=== PATIENT | female | born 1980 | race Caucasian/White ===

== ENCOUNTER 2018-07-20 14:37 | Inpatient (IN) | payer OTHER ==
[2018-07-20 15:54] LABS: ADD UMIC YES; UR ASCORBIC ACID NEGATIVE (NEGATIVE); UR BACTERIA FEW /HPF (NONE SEEN); UR BILIRUBIN (Dip) NEGATIVE (NEGATIVE); UR BLOOD (Dip) 2+ mg/dL (NEGATIVE); UR CLARITY CLOUDY (CLEAR); UR COLOR YELLOW (YELLOW); UR GLUCOSE (Dip) NEGATIVE (NEGATIVE); UR KETONES (Dip) NEGATIVE (NEGATIVE); UR LEUKOCYTE ESTERASE (Dip) 1+ Leu/ul (NEGATIVE); UR MUCUS FEW /HPF (NONE SEEN); UR NITRITE (Dip) NEGATIVE (NEGATIVE); UR RBC 2 /HPF (0-5); UR SPECIFIC GRAVITY (Dip) 1.012 (1.003-1.030); UR SQUAMOUS EPITHELIAL CELL MANY /HPF (FEW); UR TOTAL PROTEIN (Dip) NEGATIVE (NEGATIVE); UR UROBILINOGEN (Dip) NEGATIVE (NEGATIVE); UR WBC 2 /HPF (0-5)
[2018-07-20] MEDS: LIDOCAINE 1% (MPF) 5 ML VIAL SC (16:30)
[2018-07-20 16:35] LABS: ADD MAN DIFF? NO
[2018-07-20] MEDS: SOD CHLORIDE 0.9% 1,000 ML IV (16:39)
[2018-07-20] MEDS: ONDANSETRON 4 MG INJ IV (16:39)
[2018-07-20] MEDS: morphine 4 MG/ML VIAL IV (16:39)
[2018-07-20 16:42] LABS: HEMATOCRIT 38.3 % (37.0-47.0); HEMOGLOBIN 11.8 g/dl (12.0-16.0); LYMPHOCYTES % 24.6 % (15.0-51.0); MEAN CORPUSCULAR HEMOGLOBIN 26.4 pg (29.0-33.0); MEAN CORPUSCULAR HGB CONC 30.8 g/dl (32.0-37.0); MEAN CORPUSCULAR VOLUME 85.7 fl (82.0-101.0); MEAN PLATELET VOLUME 10.5 fl (7.4-10.4); NEUTROPHILS % 67.5 % (39.0-77.0); PLATELET COUNT 262 10^3/UL (140-415); RED BLOOD COUNT 4.47 10^6/ul (4.20-5.40); RED CELL DISTRIBUTION WIDTH 15.6 % (11.5-14.5)
[2018-07-20 16:42] LABS: WHITE BLOOD COUNT 7.2 10^3/ul (4.8-10.8)
[2018-07-20 16:43] LABS: BASOPHILS % 0.3 % (0.0-2.0); EOSINOPHILS # 0.1 10^3/ul (0.0-0.5); EOSINOPHILS % 1.4 % (0.0-7.0); LYMPHOCYTES # 1.8 10^3/ul (0.8-2.9); MONOCYTE # 0.4 10^3/ul (0.3-0.9); MONOCYTES % 5.6 % (0.0-11.0); NEUTROPHIL # 4.8 10^3/ul (1.6-7.5)
[2018-07-20 17:02] LABS: ALANINE AMINOTRANSFERASE 85 IU/L (13-69); ALBUMIN 4.2 g/dl (3.3-4.9); ALBUMIN/GLOBULIN RATIO 1.35; ALKALINE PHOSPHATASE 156 IU/L (42-121); ANION GAP 7 (5-13); ASPARTATE AMINO TRANSFERASE 42 IU/L (15-46); BILIRUBIN,INDIRECT 0.2 mg/dl (0-1.1); BILIRUBIN,TOTAL 0.2 mg/dl (0.2-1.3); BLOOD UREA NITROGEN 8 mg/dl (7-20); CALCIUM 9.5 mg/dl (8.4-10.2); CARBON DIOXIDE 27 mmol/L (21-31); CHLORIDE 106 mmol/L (97-110); CREATININE 0.69 mg/dl (0.44-1.00); Estimated GFR > 60 mL/min (>60); GLUCOSE 88 mg/dl (70-220); LIPASE 71 U/L (23-300); POTASSIUM 3.9 mmol/L (3.5-5.1); SODIUM 140 mmol/L (135-144); TOTAL PROTEIN 7.3 g/dl (6.1-8.1)
[2018-07-20] MEDS: DIPHENHYDRAMINE 50 MG INJ IV (17:23)
[2018-07-20] MEDS: HYDROmorphONE 2 MG/ML SYG IV ×3 (17:23→22:40)
[2018-07-20] MEDS: METHYLPREDNISOLONE 125 MG INJ IV (18:10)
[2018-07-20] MEDS ORDERED: ACETAMINOPHEN 325 MG TAB PO ×2 (18:30→19:00)
[2018-07-20] MEDS ORDERED: ONDANSETRON 4 MG INJ IV ×2 (18:30→19:00)
[2018-07-20] MEDS ORDERED: NACL 0.9% 3 ML SYG IV (19:00)
[2018-07-20] MEDS ORDERED: HYDROCODONE/APAP (5/325) TAB PO (19:00)
[2018-07-20] MEDS: DEXTROSE 5%-0.45% NACL 1,000 ML IV (19:13)
[2018-07-20] MEDS: MESALAMINE (EC) 400 MG CAP PO (21:00)
[2018-07-20] MEDS: NICOTINE (21 MG/24 HR) PATCH TRANSDERM (21:00)
[2018-07-20] MEDS: PRAMOXINE/HC 10 GM RECT FOAM PR (21:00)
[2018-07-20] MEDS: METHYLPREDNISOLONE 40 MG INJ IV (21:54)
[2018-07-20] MEDS: PIPER-TAZO 3.375 GM IV (PMX) 100 ML IVPB (21:54)
[2018-07-20] MEDS ORDERED: ZOLPIDEM 5 MG TAB PO (22:30)
[2018-07-21] MEDS: HYDROmorphONE 2 MG/ML SYG IV (01:40)
[2018-07-21] MEDS ORDERED: PANTOPRAZOLE 40 MG INJ IV (06:00)
== END 2018-07-21 02:43 | disposition left against medical advice (07) | DRG 386 ==
LOC: E/R 14:37 → 2NE 18:19
DX: K51.90 Ulcerative colitis, unspecified, without complications (principal); D62 Acute posthemorrhagic anemia; K51.20 Ulcerative (chronic) proctitis without complications; F17.200 Nicotine dependence, unspecified, uncomplicated
CPT/HCPCS: 36415; 74176; 80053; 81001; 83690; 84703; 85025; 86850; 86900; 86901; 96374; 96375; 99285-25

== ENCOUNTER 2018-08-06 13:33 | Emergency (ER) | payer OTHER ==
[2018-08-06 15:22] LABS: ADD MAN DIFF? NO
[2018-08-06] MEDS: SOD CHLORIDE 0.9% 1,000 ML IV (15:30)
[2018-08-06] MEDS: METHYLPRED. NA SUCC 250 MG in DEXTROSE 5% 50 ML IV (15:30)
[2018-08-06] MEDS: HYDROmorphONE 1 MG/ML SYG IV ×2 (15:30→17:29)
[2018-08-06] MEDS: ONDANSETRON 4 MG INJ IV ×3 (15:30→18:12)
[2018-08-06 15:31] LABS: EOSINOPHILS # 0.2 10^3/ul (0.0-0.5); EOSINOPHILS % 4.4 % (0.0-7.0); HEMATOCRIT 33.1 % (37.0-47.0); HEMOGLOBIN 9.9 g/dl (12.0-16.0); LYMPHOCYTES # 1.5 10^3/ul (0.8-2.9); LYMPHOCYTES % 36.7 % (15.0-51.0); MEAN CORPUSCULAR HEMOGLOBIN 24.8 pg (29.0-33.0); MEAN CORPUSCULAR HGB CONC 29.9 g/dl (32.0-37.0); MEAN PLATELET VOLUME 10.8 fl (7.4-10.4); MONOCYTE # 0.4 10^3/ul (0.3-0.9); MONOCYTES % 9.3 % (0.0-11.0); NEUTROPHILS % 48.4 % (39.0-77.0); PLATELET COUNT 242 10^3/UL (140-415); RED BLOOD COUNT 3.99 10^6/ul (4.20-5.40); RED CELL DISTRIBUTION WIDTH 15.5 % (11.5-14.5)
[2018-08-06 15:31] LABS: WHITE BLOOD COUNT 4.1 10^3/ul (4.8-10.8)
[2018-08-06 15:48] LABS: ALANINE AMINOTRANSFERASE 17 IU/L (13-69); ALBUMIN 4.1 g/dl (3.3-4.9); ALBUMIN/GLOBULIN RATIO 1.57; ALKALINE PHOSPHATASE 88 IU/L (42-121); ANION GAP 11 (5-13); ASPARTATE AMINO TRANSFERASE 23 IU/L (15-46); BILIRUBIN,INDIRECT 0.2 mg/dl (0-1.1); BILIRUBIN,TOTAL 0.2 mg/dl (0.2-1.3); BLOOD UREA NITROGEN 7 mg/dl (7-20); CARBON DIOXIDE 26 mmol/L (21-31); CHLORIDE 105 mmol/L (97-110); CREATININE 0.61 mg/dl (0.44-1.00); Estimated GFR > 60 mL/min (>60); GLUCOSE 68 mg/dl (70-220); POTASSIUM 3.5 mmol/L (3.5-5.1); SODIUM 142 mmol/L (135-144); TOTAL PROTEIN 6.7 g/dl (6.1-8.1)
[2018-08-06] MEDS: IOHEXOL 300MG/ML 150 ML BTL (15:57)
[2018-08-06] MEDS: SOD CHLORIDE 0.9% 100 ML (15:57)
[2018-08-06] MEDS: HYDROmorphONE 0.5 MG/0.5 ML SYG IV (18:12)
== END 2018-08-06 18:47 | disposition home or self-care (01) ==
LOC: E/R 13:33
DX: K51.90 Ulcerative colitis, unspecified, without complications (principal)
CPT/HCPCS: 36415; 74177; 80053; 85025; 96374; 96375; 96376; 99285-25

== ENCOUNTER 2018-09-11 17:31 | Inpatient (IN) | payer OTHER ==
[2018-09-11] MEDS: ONDANSETRON 4 MG INJ IV (20:03)
[2018-09-11] MEDS: DEXAMETHASONE 4 MG/ML 1 ML INJ IV (20:03)
[2018-09-11] MEDS: SOD CHLORIDE 0.9% 1,000 ML IV (20:03)
[2018-09-11] MEDS: HYDROmorphONE 1 MG/ML SYG IV ×2 (20:04→21:26)
[2018-09-11 20:13] LABS: ADD MAN DIFF? NO
[2018-09-11 20:15] LABS: ABNORMAL IP MESSAGE 1; BASOPHILS % 0.4 % (0.0-2.0); HEMATOCRIT 43.8 % (37.0-47.0); HEMOGLOBIN 12.9 g/dl (12.0-16.0); LYMPHOCYTES # 0.9 10^3/ul (0.8-2.9); LYMPHOCYTES % 8.3 % (15.0-51.0); MEAN CORPUSCULAR HEMOGLOBIN 23.6 pg (29.0-33.0); MEAN CORPUSCULAR HGB CONC 29.5 g/dl (32.0-37.0); MEAN CORPUSCULAR VOLUME 80.1 fl (82.0-101.0); MONOCYTE # 0.9 10^3/ul (0.3-0.9); MONOCYTES % 8.3 % (0.0-11.0); NEUTROPHILS % 82.2 % (39.0-77.0); PLATELET COUNT 238 10^3/UL (140-415); RED BLOOD COUNT 5.47 10^6/ul (4.20-5.40); RED CELL DISTRIBUTION WIDTH 21.5 % (11.5-14.5)
[2018-09-11 20:15] LABS: WHITE BLOOD COUNT 10.9 10^3/ul (4.8-10.8)
[2018-09-11 20:21] LABS: POSITIVE DIFF @See below
[2018-09-11 20:51] LABS: ALANINE AMINOTRANSFERASE 15 IU/L (13-69); ALBUMIN 3.9 g/dl (3.3-4.9); ALBUMIN/GLOBULIN RATIO 1.34; ALKALINE PHOSPHATASE 84 IU/L (42-121); ANION GAP 9 (5-13); ASPARTATE AMINO TRANSFERASE 25 IU/L (15-46); BILIRUBIN,INDIRECT 0.8 mg/dl (0-1.1); BILIRUBIN,TOTAL 0.8 mg/dl (0.2-1.3); BLOOD UREA NITROGEN 17 mg/dl (7-20); CARBON DIOXIDE 24 mmol/L (21-31); CHLORIDE 107 mmol/L (97-110); CREATININE 0.63 mg/dl (0.44-1.00); Estimated GFR > 60 mL/min (>60); GLUCOSE 109 mg/dl (70-220); INR 0.92; LIPASE 97 U/L (23-300); POTASSIUM 4.1 mmol/L (3.5-5.1); PROTIME 12.5 Sec (11.9-14.9); SODIUM 140 mmol/L (135-144); TOTAL PROTEIN 6.8 g/dl (6.1-8.1)
[2018-09-11 20:52] LABS: PARTIAL THROMBOPLASTIN TIME 24.1 Sec (23.0-35.0)
[2018-09-11] MEDS: DEXAMETHASONE 10 MG/ML 1 ML INJ IV (20:57)
[2018-09-11] MEDS ORDERED: ONDANSETRON 4 MG INJ IV ×2 (21:30→23:30)
[2018-09-11] MEDS ORDERED: ACETAMINOPHEN 325 MG TAB PO (21:30)
[2018-09-11 21:51] LABS: URINE BLOOD (Dip) POC 3+ (NEGATIVE); URINE GLUCOSE (Dip) POC Negative (NEGATIVE); URINE KETONES (Dip) POC Negative (NEGATIVE); URINE LEUKOCYTE EST (Dip) POC 1+ (NEGATIVE); URINE NITRITE (Dip) POC Negative (NEGATIVE); URINE TOTAL PROTEIN POC 2+ (NEGATIVE)
[2018-09-11] MEDS ORDERED: HYDROCODONE/APAP (10/325) TAB PO (23:30)
[2018-09-11] MEDS ORDERED: NACL 0.9% 3 ML SYG IV (23:30)
[2018-09-11] MEDS ORDERED: HYDROCODONE/APAP (5/325) TAB PO (23:30)
[2018-09-12] MEDS: HYDROCODONE/APAP (5/325) TAB PO (00:30)
[2018-09-12] MEDS: clonAZEPAM 0.5 MG TAB PO (01:53)
[2018-09-12] MEDS: HYDROmorphONE 0.5 MG/0.5 ML SYG IV (01:53)
[2018-09-12] MEDS: DEXTROSE 5%-0.45% NACL 1,000 ML IV (01:54)
[2018-09-12] MEDS: ZOLPIDEM 5 MG TAB PO (02:39)
[2018-09-12] MEDS ORDERED: NICOTINE (21 MG/24 HR) PATCH TRANSDERM ×2 (03:30→09:00)
[2018-09-12] MEDS: NICOTINE (21 MG/24 HR) PATCH TRANSDERM (03:33)
[2018-09-12] MEDS ORDERED: PANTOPRAZOLE 40 MG INJ IV (06:00)
[2018-09-12] MEDS ORDERED: MESALAMINE (EC) 400 MG CAP PO (06:00)
[2018-09-12] MEDS ORDERED: SERTRALINE 100 MG TAB PO (09:00)
[2018-09-12] MEDS ORDERED: GABAPENTIN 400 MG CAP PO (09:00)
[2018-09-12] MEDS ORDERED: clonAZEPAM 0.5 MG TAB PO (09:00)
== END 2018-09-12 04:00 | disposition left against medical advice (07) | DRG 378 ==
LOC: PP2 21:39 → E/R 17:31 → PP2 21:07
PROVIDERS: Internal Medicine
DX: K62.5 Hemorrhage of anus and rectum (principal); K51.90 Ulcerative colitis, unspecified, without complications
CPT/HCPCS: 80053; 81003; 83690; 84703; 85025; 85610; 85730; 87081; 96374; 96375; 96376; 99285-25

== ENCOUNTER 2018-10-07 19:29 | Emergency (ER) | payer OTHER ==
[2018-10-07] MEDS: HYDROmorphONE 1 MG/ML SYG IV (22:55)
[2018-10-07] MEDS: SOD CHLORIDE 0.9% 1,000 ML IV (22:55)
[2018-10-07 23:55] LABS: ADD MAN DIFF? NO
[2018-10-07 23:56] LABS: WHITE BLOOD COUNT 6.4 10^3/ul (4.8-10.8)
[2018-10-07 23:56] LABS: ABNORMAL IP MESSAGE 1; BASOPHILS % 0.6 % (0.0-2.0); EOSINOPHILS # 0.1 10^3/ul (0.0-0.5); EOSINOPHILS % 1.4 % (0.0-7.0); HEMATOCRIT 39.8 % (37.0-47.0); HEMOGLOBIN 12.1 g/dl (12.0-16.0); LYMPHOCYTES # 1.4 10^3/ul (0.8-2.9); LYMPHOCYTES % 21.8 % (15.0-51.0); MEAN CORPUSCULAR HEMOGLOBIN 23.9 pg (29.0-33.0); MEAN CORPUSCULAR HGB CONC 30.4 g/dl (32.0-37.0); MEAN CORPUSCULAR VOLUME 78.7 fl (82.0-101.0); MEAN PLATELET VOLUME 10.5 fl (7.4-10.4); MONOCYTE # 0.5 10^3/ul (0.3-0.9); MONOCYTES % 7.9 % (0.0-11.0); NEUTROPHIL # 4.4 10^3/ul (1.6-7.5); PLATELET COUNT 374 10^3/UL (140-415); RED BLOOD COUNT 5.06 10^6/ul (4.20-5.40); RED CELL DISTRIBUTION WIDTH 22.3 % (11.5-14.5)
[2018-10-07 23:58] LABS: URINE PH (Dip) POC 7.5 (5.0-8.5)
[2018-10-07 23:58] LABS: URINE BLOOD (Dip) POC Negative (NEGATIVE); URINE GLUCOSE (Dip) POC Negative (NEGATIVE); URINE KETONES (Dip) POC Negative (NEGATIVE); URINE LEUKOCYTE EST (Dip) POC Negative (NEGATIVE); URINE NITRITE (Dip) POC Negative (NEGATIVE); URINE TOTAL PROTEIN POC Negative (NEGATIVE)
[2018-10-08 00:03] LABS: POSITIVE DIFF @See below
[2018-10-08 00:14] LABS: ADD UMIC YES; UR AMORPHOUS CRYSTAL FEW /HPF (NONE SEEN); UR ASCORBIC ACID NEGATIVE (NEGATIVE); UR BILIRUBIN (Dip) NEGATIVE (NEGATIVE); UR BLOOD (Dip) NEGATIVE (NEGATIVE); UR CLARITY CLOUDY (CLEAR); UR COLOR YELLOW (YELLOW); UR GLUCOSE (Dip) NEGATIVE (NEGATIVE); UR KETONES (Dip) NEGATIVE (NEGATIVE); UR LEUKOCYTE ESTERASE (Dip) NEGATIVE Leu/ul (NEGATIVE); UR MUCUS FEW /HPF (NONE SEEN); UR NITRITE (Dip) NEGATIVE (NEGATIVE); UR RBC 4 /HPF (0-5); UR SPECIFIC GRAVITY (Dip) 1.017 (1.003-1.030); UR SQUAMOUS EPITHELIAL CELL MANY /HPF (FEW); UR TOTAL PROTEIN (Dip) NEGATIVE (NEGATIVE); UR UROBILINOGEN (Dip) NEGATIVE (NEGATIVE); UR WBC 1 /HPF (0-5)
[2018-10-08 00:16] LABS: ALANINE AMINOTRANSFERASE 33 IU/L (13-69); ALBUMIN 3.9 g/dl (3.3-4.9); ALBUMIN/GLOBULIN RATIO 1.25; ALKALINE PHOSPHATASE 229 IU/L (42-121); ANION GAP 7 (5-13); ASPARTATE AMINO TRANSFERASE 25 IU/L (15-46); BILIRUBIN,INDIRECT 0.1 mg/dl (0-1.1); BILIRUBIN,TOTAL 0.1 mg/dl (0.2-1.3); BLOOD UREA NITROGEN 6 mg/dl (7-20); CALCIUM 9.4 mg/dl (8.4-10.2); CARBON DIOXIDE 26 mmol/L (21-31); CHLORIDE 109 mmol/L (97-110); CREATININE 0.54 mg/dl (0.44-1.00); Estimated GFR > 60 mL/min (>60); GLUCOSE 90 mg/dl (70-220); POTASSIUM 4.1 mmol/L (3.5-5.1); SODIUM 142 mmol/L (135-144)
[2018-10-08 00:18] LABS: INR 0.86; PROTIME 11.8 Sec (11.9-14.9); PT RATIO 0.9
[2018-10-08 00:19] LABS: PARTIAL THROMBOPLASTIN TIME 31.7 Sec (23.0-35.0)
[2018-10-08 00:31] LABS: OCCULT BLOOD STOOL POSITIVE (NEGATIVE)
[2018-10-08] MEDS: METHYLPREDNISOLONE 125 MG INJ IV (00:57)
== END 2018-10-08 01:18 | disposition home or self-care (01) ==
LOC: E/R 10-08 01:18
DX: K51.511 Left sided colitis with rectal bleeding (principal); Z87.891 Personal history of nicotine dependence
CPT/HCPCS: 36415; 80053; 81001; 81003; 81025; 82270; 85025; 85610; 85730; 96374; 96375; 99284-25